=== PATIENT | female | born 1970 | race Hispanic/Latino ===

== ENCOUNTER 2019-09-05 13:02 | Emergency (ER) | payer BC ==
--- NOTE | 2019-09-05 15:22 | Event Note ---
ED Screening Note Date of service: 09/05/19 Time: 15:16 ED Screening Note: Patient presents from detox center for check of dark-colored urine and concern for liver disease Patient is currently detoxing from alcohol States history of liver issues Patient is here for medical clearance She denies any dysuria, hematuria, urinary frequency, or abdominal pain This initial assessment/diagnostic orders/clinical plan/treatment(s) is/are subject to change based on patients health status, clinical progression and re- assessment by fellow clinical providers in the ED. Further treatment and workup at subsequent clinical providers discretion. Patient/guardian urged not to elope from the ED as their condition may be serious if not clinically assessed and managed. Initial orders include: Labs UA
[2019-09-05 15:45] LABS: Bacteria,Urine 1+ /HPF (Negative); Bilirubin,Urine MOD (Negative); Blood,Urine NEG (Negative); Color,Urine Amber (Yellow); Protein,Urine <15 mg/dL mg/dL (Negative); WBC,Urine < 1.0 /HPF (0.0-6.0)
[2019-09-05 16:25] LABS: Ictotest,Urine Positive (Negative)
[2019-09-05 16:48] LABS: Hematocrit 29.6 % (30.3-42.9); Mean Corpuscular HGB Conc 34 % (30-34); Mean Corpuscular Volume 102 fl (79-97); Platelet Count 150 K/mm3 (140-440); Red Blood Count 2.89 M/mm3 (3.65-5.03); Red Cell Distribution Width 15.7 % (13.2-15.2)
[2019-09-05 17:31] LABS: Basophils % (Manual) 0 % (0.0-1.8); Eosinophils % (Manual) 0 % (0.0-4.3); RBC Morphology Normal; Total Cells Counted 100
[2019-09-05 17:33] VITALS: BP 106/38
[2019-09-05 17:38] LABS: Alanine Aminotransferase 10 units/L (7-56); BUN/Creatinine Ratio 4; Blood Urea Nitrogen 2 mg/dL (7-17); Calcium 8.5 mg/dL (8.4-10.2)
[2019-09-05 17:39] LABS: Albumin 2.8 g/dL (3.9-5); Hemolysis Index 9
[2019-09-05] MEDS ORDERED: SODIUM CHLORIDE 0.9% 1000 ML 1,000 ML IV ONE (19:34)
[2019-09-05] MEDS ORDERED: POTASSIUM CHLORIDE ER 20 MEQ TAB PO ONE (19:35)
--- NOTE | 2019-09-05 19:52 | Emergency Department Report ---
HPI - General Chief Complaint: Medical Clearance Time Seen by Provider: 09/05/19 15:14 - HPI HPI: 48-year-old female presents to the emergency department from the [facility] for a medical clearance. The patient has a history of alcoholism and s ays that she recently was on a duval. Patient has noticed very dark urine and that she has become slightly jaundiced over the past week. She complains of some mild lower abdominal discomfort. She denies any fever, nausea, vomiting, constipation or diarrhea, dysuria. The patient says that she has had jaundice 1 time in the past and was found to have "inflammation of my liver, but not cirrhosis." She has not taken anything for symptoms prior to presentation. Her last drink of alcohol was yesterday. She denies any history of delirium tremens. ED Past Medical Hx - Past Medical History Previous Medical History?: Yes Hx GERD: Yes - Social History Smoking Status: Current Every Day Smoker Substance Use Type: Alcohol - Medications Home Medications: Home Medications Medication Instructions Recorded Confirmed Last Taken Type Multivitamin Tab [Multiple Vitamin 1 each PO QDAY #30 tablet 09/05/19 Unknown Rx TAB (Theragran)] ED Review of Systems ROS: Stated complaint: MEDICAL CLEARANCE Other details as noted in HPI Comment: All other systems reviewed and negative Constitutional: denies: chills, fever Eyes: denies: eye pain, vision change ENT: denies: ear pain, throat pain Respiratory: denies: cough, shortness of breath Cardiovascular: denies: chest pain, palpitations Gastrointestinal: abdominal pain. denies: vomiting Genitourinary: denies: dysuria, discharge Musculoskeletal: denies: back pain, arthralgia Skin: change in color. denies: rash Neurological: denies: headache, weakness Physical Exam - Physical Exam Vital Signs: Vital Signs 09/05/19 09/05/19 15:13 17:32 Temperature 98.7 F Pulse Rate 104 H 94 H Respiratory 18 16 Rate Blood Pressure 115/62 Blood Pressure 106/38 [Right] O2 Sat by Pulse 100 98 Oximetry Physical Exam: GENERAL: The patient is well-developed well-nourished. HENT: Normocephalic. Atraumatic. Patient has moist mucous membranes. EYES: Extraocular motions are intact. NECK: Supple. Trachea is midline. CHEST/LUNGS: Clear to auscultation. There is no respiratory distress noted. HEART/CARDIOVASCULAR: Regular. There is no tachycardia. There is no murmur. ABDOMEN: Abdomen is soft, nontender. Patient has normal bowel sounds. There is no abdominal distention. SKIN: Skin is warm and dry. Patient is jaundiced. NEURO: The patient is awake, alert, and oriented. The patient is cooperative. The patient has no focal neurologic deficits. Normal speech. MUSCULOSKELETAL: There is no tenderness or deformity. There is no limitation range of motion. There is no evidence of acute injury. ED Course Vital Signs 09/05/19 09/05/19 15:13 17:32 Temperature 98.7 F Pulse Rate 104 H 94 H Respiratory 18 16 Rate Blood Pressure 115/62 Blood Pressure 106/38 [Right] O2 Sat by Pulse 100 98 Oximetry - Consultations Consultation #1: 09/05/19 23:30 I spoke with the hand counter on-call, Dr. Escalona, regarding the patient's elevated bilirubin level and jaundice. The ultrasound does not show any bile duct dilatation or any other obvious acute process other than alcoholic liver disease. Dr. Escalona feels that the patient is safe for discharge and safe to begin alcohol detox. He recommends the patient start a multivitamin and start having 3 nutritious meals per day. He also feels that the patient does not need to return to the emergency department solely for the jaundiced skin. Consultation #2: 09/05/19 23:32 I spoke with the general surgeon on-call, Dr. Fairbanks, regarding the ultrasound findings of an edematous gallbladder wall. He agrees that this does not appear consistent with cholecystitis and that the edematous gallbladder wall may be secondary to the alcoholic liver disease and the ascites found. He is happy to see the patient in the outpatient setting if she begins to have any abdominal pain. ED Medical Decision Making - Lab Data Result diagrams: 09/05/19 16:23 09/05/19 21:47 - Radiology Data Radiology results: report reviewed ULTRASOUND ABDOMEN, LIMITED (RIGHT UPPER QUADRANT) INDICATION: Upper abd pain, Bili 10 COMPARISON: None available. LIMITATIONS: None FINDINGS: Pancreas: Visualized portion shows no significant abnormality. Liver: Moderate fatty infiltration is seen without definite focal mass. Liver is mildly enlarged and has a length of at least 18.5 cm. Gallbladder: Gallbladder is mildly contracted. The gallbladder wall appears prominent measuring up to nearly 5 mm in some areas and there is a question of fluid within or just surrounding the wall. Mild focal echogenicity in the fundal region projecting into the lumen probably represents sludge but mobility was not clearly reported by the technologist. This is not obviously cholelithiasis though could be small polyps. Appearance is rather irregular however though small. Transverse width of this process is approximately 11 mm and projection into the lumen is approximately 5 mm. I do not see definite focal enlargement of the wall and no calcifications are obvious. Bile ducts: Normal. Common Bile Duct measures 1 mm. Right Kidney: Visualized portions show no abnormality. Free fluid: Mild ascites is seen in the right lower quadrant Additional Findings: None. IMPRESSION: 1. Mild ascites 2. Gallbladder wall possible edema without definite cholelithiasis. Mild focal echogenicity projecting into the lumen in the fundal region as described above could represent small irregular polyps. I would recommend follow-up of this area. Acute cholecystitis cannot be fully excluded based on the appearance of the wall. 3. Moderate fatty infiltration of the liver with hepatomegaly - Medical Decision Making This patient was sent in for a medical clearance to go to the [place] detox center for her alcoholism and also secondary to her jaundiced skin. The patient's labs shows a slight elevation in the AST of 82 and an elevated bilirubin level of 10. The patient also has some hyponatremia with a sodium of 127 and hypokalemia with a potassium of 3.1. Patient was given a liter of IV fluid and 40 mEq of potassium. On examination the patient has no abdominal tenderness to palpation, including and especially in the epigastrium or right upper quadrant. An abdominal ultrasound was done that shows some hepatomegaly and mild ascites. There is no dilatation of the biliary duct. There may be a gallbladder polyp but no obvious cholelithiasis. There is an edematous gallbladder wall but no definitive evidence of cholecystitis. I spoke with general surgery regarding these findings and he agrees that it does not appear consistent with cholecystitis since the patient does not have any abdominal tenderness to palpation and the edematous gallbladder wall may be secondary to the ascites from the alcoholic liver disease. I also spoke with gastroenterology who is concerned with the patient's elevated bilirubin level and or jaundiced skin given the rest of her labs and the ultrasound findings. All of the labs and imaging results have been discussed with the patient, as well as the plan for detox and outpatient follow-up. She has been instructed to start eating 3 nutritional meals per day and take the multivitamin as prescribed. Most of all the patient realizes she cannot return to drinking alcohol. She will be discharged to the [place] detox center and has been instructed to return to the ER with any worsening of her symptoms or any acute distress. Critical Care Time: No Critical care attestation.: If time is entered above; I have spent that time in minutes in the direct care of this critically ill patient, excluding procedure time. ED Disposition Clinical Impression: Jaundice, Hyponatremia, Hypokalemia, Elevated bilirubin, Liver disease due to alcohol Disposition: DC-01 TO HOME OR SELFCARE Is pt being admited?: No Condition: Stable Instructions: Hyponatremia (ED), Hypokalemia (ED), Jaundice (ED) Additional Instructions: This patient was evaluated in the emergency department this evening regarding her jaundiced skin and for a medical clearance to attend alcohol detox. The patient had labs and imaging studies done. A phone consultation was done with gastroenterology who feels that the patient is safe for discharge and able to attend alcohol detox. The patient may remain jaundiced over the next few days. She has been started on a multivitamin. She should continue to have 3 nutritious meals per day. Please return to the emergency department with any worsening of your symptoms or with any acute distress. I have given you a referral for [place] to follow-up regarding your jaundice, elevated bilirubin levels, and alcoholic liver disease. I have also given you a referral for a local general surgeon, Dr. Fairbanks, to follow-up regarding any abdominal pain. Prescriptions: Multivitamin Tab [Multiple Vitamin TAB (Theragran)] 1 each PO QDAY #30 tablet Referrals: PRIMARY MD PERI [Primary Care Provider] - 3-5 Days [facility] [Provider Group] - as needed ANDREI FAIRBANKS MD [Staff Physician] - as needed Time of Disposition: 23:12
--- NOTE | 2019-09-05 21:04 | Ultrasound Report ---
ULTRASOUND ABDOMEN, LIMITED (RIGHT UPPER QUADRANT) INDICATION: Upper abd pain, Bili 10 COMPARISON: None available. LIMITATIONS: None FINDINGS: Pancreas: Visualized portion shows no significant abnormality. Liver: Moderate fatty infiltration is seen without definite focal mass. Liver is mildly enlarged and has a length of at least 18.5 cm. Gallbladder: Gallbladder is mildly contracted. The gallbladder wall appears prominent measuring up to nearly 5 mm in some areas and there is a question of fluid within or just surrounding the wall. Mild focal echogenicity in the fundal region projecting into the lumen probably represents sludge but mob ility was not clearly reported by the technologist. This is not obviously cholelithiasis though could be small polyps. Appearance is rather irregular however though small. Transverse width of this proce ss is approximately 11 mm and projection into the lumen is approximately 5 mm. I do not see definite focal enlargement of the wall and no calcifications are obvious. Bile ducts: Normal. Common Bile Duct measures 1 mm. Right Kidney: Visualized portions show no abnormality. Free fluid: Mild ascites is seen in the right lower quadrant Additional Findings: None. IMPRESSION: 1. Mild ascites 2. Gallbladder wall possible edema without definite cholelithiasis. Mild focal echogenicity projectin g into the lumen in the fundal region as described above could represent small irregular polyps. I wo uld recommend follow-up of this area. Acute cholecystitis cannot be fully excluded based on the appea gentry of the wall. 3. Moderate fatty infiltration of the liver with hepatomegaly Signer Name: Jorge Gage MD Signed: 09/05/2019 9:00 PM Workstation Name: [id number]
[2019-09-05 23:02] LABS: BUN/Creatinine Ratio 4; Blood Urea Nitrogen 2 mg/dL (7-17); Calcium 7.9 mg/dL (8.4-10.2); Hemolysis Index 0
== END 2019-09-05 23:36 | disposition home or self-care (01) ==
LOC: ED 13:02
DX: E87.6 Hypokalemia (principal); E87.1 Hypo-osmolality and hyponatremia; R17 Unspecified jaundice; K21.9 Gastro-esophageal reflux disease without esophagitis; F17.200 Nicotine dependence, unspecified, uncomplicated
CPT/HCPCS: 36415; 76705; 80048; 80053; 81001; 85007; 85025; 96361; 99284; J7030; 96360